=== PATIENT | male | born 1950 | race Caucasian/White ===

== ENCOUNTER → 2017-01-19 | Day surgery (SDC) | payer BC ==
[~2017-01-19] MED LIST: ASPIRIN81 M2 PO; BACIT-POLYMYXI3.5 GM OP; COREG3.125 M1; TYLOX 5/500 CAP1 CAP PO; VICODIN 5/500 T1 TAB PO
--- NOTE | ~2017-01-19 | OR ---
Unit #: [id number] #: [id number] Patient: TE GUARDADO [id number] [facility] [address]. [place], [place] [address] [id number] O MR#: [id number] NAME: TE GUARDADO ROOM: Date of Procedure: 01/19/2017 Admission Date: 01/19/2017 Surgeon: Marty Gomez M.D. : 1950 Attending Physician: Marty Gomez M.D. OPERATIVE REPORT PREOPERATIVE DIAGNOSIS Colorectal cancer screening. POSTOPERATIVE DIAGNOSIS Sigmoid diverticulosis. PROCEDURE PERFORMED Colonoscopy to cecum. ANESTHESIA Monitored anesthesia. INDICATIONS FOR PROCEDURE A 66-year-old gentleman due for 10-year surveillance colonoscopy for colorectal cancer screening. DESCRIPTION OF PROCEDURE The patient was admitted to [facility], positively identified, and transported to the endoscopy unit. After appropriate monitoring and positioning, he was sedated by the nurse wiring mechanic. On rectal examination, there was no local anorectal pathology and on digital examination, he had a normal prostate. Colonoscope was passed through the anal verge throughout the extent of the colon to the cecum, where the appendiceal orifice and ileocecal valve were photodocumented. On careful antegrade and retrograde visualization, no polyps, masses, or other mucosal abnormalities were noted. In the sigmoid colon, he had moderate sigmoid diverticulosis with no evidence of diverticulitis or any recent bleeding. In the rectal vault, there was no internal hemorrhoidal disease. The patient tolerated the procedure well and transported to recovery in stable condition. His is not here yet, so I could not discuss the findings with her. I have asked the nursing staff to discuss with the patient continuing a high-fiber diet for his diverticulosis and if he remains otherwise asymptomatic, should have a recall colonoscopy in 10 years. Dictated by... Marty Gomez M.D. MYRIAM/shena TD: 01/19/2017 07:38 Unit #: [id number] #: [id number] Patient: TE GUARDADO JOB #: [id number] OPERATIVE REPORT Page 1 of 1 X Marty Gomez MD PROCEDURE OPERATIVE NOTE
--- NOTE | ~2017-01-19 | HP ---
Unit #: [id number] #: [id number] Patient: TE GUARDADO [id number] [address] [place], [place] [address] [id number] O MR#: [id number] NAME: TE GUARDADO ROOM: Age: 66 Sex: M Admission Date: 01/19/2017 : 1950 Attending Physician: Marty Gomez M.D. Primary Care Physician: Generic Doctor Not In System HISTORY AND PHYSICAL PRIMARY CARE PHYSICIAN Emmanuel Starr M.D. HISTORY AND EXAM Mr. Guardado is a very pleasant 66-year-old gentleman who is sent for surveillance colonoscopy for colorectal cancer screening. His last colonoscopy was in 2006 and, according to the patient, was normal. He is otherwise asymptomatic and has no family history of colorectal disease. PAST MEDICAL HISTORY He has had some mild cardiac issues. He describes no other medical problems. PAST SURGICAL HISTORY He has had no previous surgery except for his colonoscopy in 2006. ALLERGIES No allergies to medication. MEDICATIONS Include: 1. Carvedilol. 2. Aspirin. IMMUNIZATIONS He believes are up-to-date. FAMILY HISTORY He is unaware of any chronic or inheritable diseases. SOCIAL HISTORY . Denies use of alcohol or tobacco. He still works in his own business. REVIEW OF SYSTEMS No unexplained weight loss. No hematemesis, hematochezia, melena. No change in bowel habits. PHYSICAL EXAMINATION VITAL SIGNS: He is afebrile. Blood pressure is 140/74, heart rate 83 and regular, respirations 18. GENERAL: Awake, alert and oriented. HEENT: Unremarkable. CARDIAC EXAM: Regular rate and rhythm. Unit #: [id number] #: [id number] Patient: TE GUARDADO LUNGS: Clear. ABDOMEN: Soft. EXTREMITIES: No edema. NEUROLOGICAL: Grossly intact. ASSESSMENT AND PLAN 66-year-old gentleman due for surveillance colonoscopy for colorectal cancer screening. We discussed the procedure including risks, benefits, complications, bowel prep. He understands and agrees to proceed. Dictated by Marty Gomez M.D. MYRIAM/samson TD: 01/19/2017 08:00 JOB #: [id number] HISTORY AND PHYSICAL Page 1 of 1 X Marty Gomez MD HISTORY AND PHYSICAL
== END | disposition home or self-care (01) ==
LOC: COPS 05:49
DX: Z12.11 Encounter for screening for malignant neoplasm of colon (principal); K57.30 Diverticulosis of large intestine without perforation or abscess without bleeding; Z79.899 Other long term (current) drug therapy; Z79.82 Long term (current) use of aspirin
CPT/HCPCS: J2250